=== PATIENT | female | born 1985 | race Caucasian/White ===

== ENCOUNTER 2016-09-10 08:38 | Outpatient (CLI) ==
[2015-12-16 07:39] VITALS: BMI 36.6
--- NOTE | 2016-09-10 10:11 | CT ---
EXAM: CT abdomen pelvis without contrast HISTORY: Left lower quadrant. COMPARISON: None TECHNIQUE: Serial axial images of the abdomen pelvis were performed from the lung bases through the inferior pelvis without contrast. These were viewed in multiple planes. FINDINGS: Lung bases are clear. Evaluation is limited due to lack of contrast. The liver is unremarkable. The gallbladder has been removed. Adrenal glands are unremarkable. The kidneys are normal. The spleen is unremarkable. T he pancreas is unremarkable. The stomach is normal. The small bowel in the abdomen and pelvis is unremarkable. The colon is unremarkable. The appendix is normal. The urinary bladder is distended. The uterus is mildly lobular in appearance. There i s no free air, free fluid or lymphadenopathy. The osseous structures are unremarkable. IMPRESSION: 1. No acute intra-abdominal or pelvic process to account for patient's symptoms. 2. The appendix is normal.
== END 2016-09-10 08:39 | disposition home or self-care (01) ==
LOC: RAD 08:38
PROVIDERS: ATTEND Nurse Practitioner Family
DX: R10.32 Left lower quadrant pain (principal); N93.9 Abnormal uterine and vaginal bleeding, unspecified

== ENCOUNTER 2016-12-26 10:38 | Emergency (ER) ==
[2016-12-26 10:38] VITALS: BMI 36.6
[2016-12-26 10:53] VITALS: BP 131/84; TEMP 98.2
--- NOTE | 2016-12-26 11:03 | ED.PDOC ---
General ED Provider: Dr. MILENA SEVERINO Chief Complaint: Finger Pain/Injury Stated Complaint: Patient was bitten by a dog on the left Index finger. was not provocated, when asked about the details of the dog, she dont wanted us to know about it. I did explained her the risk of Rabies. Time Seen by Physician: 11:00 Mode of Arrival: Walk-In Information Source: Patient Primary Care Provider: JOSELO GARDNER Nursing and Triage Documentation Reviewed and Agree: Yes Skin Complaint Exam - Skin/Soft Tissue Complaint/Exam Symptoms Are: Still present (left index finger.) Initial Severity: Mild Current Severity: Mild Character: Reports: Redness. Denies: Swelling, Raised, Painful Aggravating: Reports: Touch Alleviating: Reports: None Associated Signs and Symptoms: Denies: Fever, Chills, Itching, Drainage, Bruising, Tenderness, Red streaks, Joint swelling Related Surgical History: Reports: None Recent Exposure to Others w/Similar Symptoms: No Skin Findings: Present: Erythema (broken nail, some blood.) Differential Diagnoses: Other (dog bite) Review of Systems - Review Of Systems Constitutional: Reports: No symptoms Eyes: Reports: No symptoms Ears, Nose, Mouth, Throat: Reports: No symptoms Respiratory: Reports: No symptoms Cardiac: Reports: No symptoms GI: Reports: No symptoms : Reports: No symptoms Musculoskeletal: Reports: No symptoms Skin: Reports: No symptoms Neurological: Reports: No symptoms Endocrine: Reports: No symptoms Hematologic/Lymphatic: Reports: No symptoms All Other Systems: Reviewed and Negative Past Medical History - Past Medical History Previously Healthy: Yes Endocrine: Reports: None Cardiovascular: Reports: None Respiratory: Reports: None Hematological: Reports: None Gastrointestinal: Reports: None Genitourinary: Reports: None Neuro/Psych: Reports: None Musculoskeletal: Reports: None Cancer: Reports: None Last Menstrual Period: N/A - Surgical History General Surgical History: Reports: Tubal ligation (GALL BLADDER, X 2, TUBAL), (GALL BLADDER, X 2, TUBAL), Cholecystectomy (GALL BLADDER, X 2, TUBAL), Other (A1 cramping symptoms began in 2004 on CANDY after delivery became while 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)) - Family History Family History: Reports: Unknown - Social History Smoking Status: Never smoker Hx Substance Use: No Alcohol Screening: Occasionally - Immunizations Tetanus Shot up to Date: No Physical Exam - Physical Exam Appearance: Well-appearing, No pain distress, Well-nourished Eyes: JESÚS, EOMI, Conjunctiva clear ENT: Ears normal, Nose normal, Oropharynx normal Respiratory: Airway patent, Breath sounds clear, Breath sounds equal, Respirations nonlabored Cardiovascular: RRR, Pulses normal, No rub, No murmur GI/: Soft, Nontender, No masses, Bowel sounds normal, No Organomegaly Musculoskeletal: Normal strength, ROM intact, No edema, No calf tenderness Skin: Warm (left index fineger tip, has bite, with broken nail. ROM NORMAL), Dry , Normal color Neurological: Sensation intact, Motor intact, Reflexes intact, Cranial nerves intact, Alert, Oriented Psychiatric: Affect appropriate, Mood appropriate Critical Care Note - Critical Care Note Total Time (mins): 0 Course - Course Vital Signs: Temp Pulse Resp BP Pulse Ox 12/26/16 10:38 98.2 F 84 16 131/84 94 L Departure - Departure Time of Disposition: 11:06 Disposition: HOME SELF-CARE Discharge Problem: Dog bite Qualifiers: Encounter type: initial encounter Qualifier Code: ([id number]) Bitten by dog, initial encounter Instructions: Animal Bite (ED) Condition: Stable Pt referred to PMD for follow-up: Yes Additional Instructions: KEEP HAND ELEVATED Tylenol prn Prescriptions: Cephalexin [Keflex] 500 mg PO Q12HR #20 capsule Allergies/Adverse Reactions: Allergies No Known Allergies Allergy (Verified 12/26/16 10:45) Home Medications: Ambulatory Orders Cephalexin [Keflex] 500 mg PO Q12HR #20 capsule 12/26/16 Disposition Discussed With: Patient
[2016-12-26] MEDS ORDERED: BOOSTRIX IM ONE (11:15)
== END 2016-12-26 11:32 | disposition home or self-care (01) ==
LOC: ED 10:38
DX: S61.351A Open bite of left index finger with damage to nail, initial encounter (principal); W54.0XXA Bitten by dog, initial encounter
CPT/HCPCS: 90471; 99282

== ENCOUNTER 2017-02-02 11:30 | Emergency (ER) ==
[2017-02-02 11:38] VITALS: BMI 37.4
[2017-02-02] MEDS ORDERED: ZOFRAN 4 MG/2 ML IVP STA (11:55)
[2017-02-02] MEDS ORDERED: SODIUM CHLORIDE 1,000 ML IV STA ×2 (11:55→13:04)
--- NOTE | 2017-02-02 12:00 | ED.PDOC ---
General ED Provider: Dr. GIOVANNY VICTORIA JR Chief Complaint: Nausea/Vomiting Stated Complaint: vomiting and diarrhea at least every 2 hours since 2:45 a.m.is not aware of anything she might have eaten that was bad[End]10 hours 98.4 127 20 96% 132/94 2/10 diarrhea x 2 since arrival to ER registration[End] Time Seen by Physician: 11:59 Mode of Arrival: Walk-In Information Source: Patient Exam Limitations: No limitations Primary Care Provider: JOSELO GARDNER Nursing and Triage Documentation Reviewed and Agree: No Review of Systems - Review Of Systems Constitutional: Reports: Malaise Eyes: Reports: No symptoms Ears, Nose, Mouth, Throat: Reports: No symptoms Respiratory: Reports: No symptoms Cardiac: Reports: No symptoms GI: Reports: Abdominal pain, Nausea, Vomiting : Reports: No symptoms Musculoskeletal: Reports: No symptoms Skin: Reports: No symptoms Neurological: Reports: No symptoms Endocrine: Reports: No symptoms Hematologic/Lymphatic: Reports: No symptoms All Other Systems: Other Past Medical History - Past Medical History Previously Healthy: Yes Endocrine: Reports: None Cardiovascular: Reports: None Respiratory: Reports: None Hematological: Reports: None Gastrointestinal: Reports: None Genitourinary: Reports: None Neuro/Psych: Reports: None Musculoskeletal: Reports: None Cancer: Reports: None Last Menstrual Period: unkown - Surgical History General Surgical History: Reports: Hysterectomy, Tubal ligation, , Cholecystectomy, Other (A1 cramping symptoms began in 2004 on CANDY after delivery became while 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)) - Family History Family History: Reports: Unknown - Social History Smoking Status: Never smoker Hx Substance Use: No Alcohol Screening: Occasionally - Immunizations Tetanus Shot up to Date: Yes Physical Exam - Physical Exam Appearance: Ill-appearing, Obese Ill-appearing: Mild Pain Distress: Mild Eyes: JESÚS, EOMI, Conjunctiva clear ENT: Ears normal, Nose normal, Oropharynx normal Neck: Supple Respiratory: Airway patent, Breath sounds clear, Breath sounds equal, Respirations nonlabored Cardiovascular: RRR, Pulses normal, No rub, No murmur GI/: Soft, No masses, Bowel sounds normal, No Organomegaly, Tender (RLQ<<LLQ rebound on left ) Musculoskeletal: Normal strength, ROM intact, No edema, No calf tenderness Skin: Warm, Dry, Normal color Neurological: Sensation intact, Motor intact, Reflexes intact, Cranial nerves intact, Alert, Oriented Psychiatric: Affect appropriate, Mood appropriate Critical Care Note - Critical Care Note Total Time (mins): 20 Course - Course Hematology/Chemistry: 02/02/17 12:19 02/02/17 12:19 Orders, Labs, Meds: Lab Review 02/02/17 12:19 WBC 11.71 H RBC 4.96 Hgb 12.5 Hct 40.5 MCV 81.7 MCH 25.2 L MCHC 30.9 L RDW Coeff of Allen 14.8 Plt Count 329 Immature Gran % (Auto) 0.3 Neut % (Auto) 93.5 Lymph % (Auto) 2.3 L [place] % (Auto) 3.7 Eos % (Auto) 0.1 Baso % (Auto) 0.1 Immature Gran # (Auto) 0.0 Neut # 11.0 H Lymph # 0.3 L [place] # 0.4 Eos # 0.0 Baso # 0.0 Sodium 142 Potassium 4.3 Chloride 111 H Carbon Dioxide 21 Anion Gap 14.3 BUN 18 Creatinine 0.81 Estimated GFR (MDRD) 82.00 BUN/Creatinine Ratio 22.22 Glucose 131 H Calcium 8.6 Total Bilirubin 0.56 AST 17 ALT 21 Alkaline Phosphatase 118 H Total Protein 7.5 Albumin 3.7 Globulin 3.8 Albumin/Globulin Ratio 0.97 Amylase 51 Lipase 13 Procalcitonin < 0.05 H. pylori IgG Antibody Positive Orders Category Date Time Status ED IV/MEDIPORT/POWERPORT .ONCE EMERGENCY 02/02/17 11:55 Active AMYLASE Stat LAB 02/02/17 12:19 Completed CBC W/ AUTO DIFF Stat LAB 02/02/17 12:19 Completed COMPREHENSIVE METABOLIC PANEL Stat LAB 02/02/17 12:19 Completed H. PYLORI SCREEN Stat LAB 02/02/17 12:19 Completed LIPASE Stat LAB 02/02/17 12:19 Completed PROCALCITONIN Stat LAB 02/02/17 12:19 Completed 0.9 % Sodium Chloride [Saline Flush] MEDS 02/02/17 11:55 Discontinued 1 syr IVF PRN PRN Ondansetron HCl/Pf [Zofran 4 mg/2 ml] MEDS 02/02/17 11:55 Discontinued 4 mg IVP ONCE STA Sodium Chloride 0.9% [Sodium Chloride] 1,000 ml MEDS 02/02/17 13:04 Discontinued IV 200 mls/hr Sodium Chloride 0.9% [Sodium Chloride] 1,000 ml MEDS 02/02/17 11:[address] ABDOMEN/PELVIS WO CONTRAST Stat RADS 02/02/17 11:55 Completed Medications Discontinued Medications Generic Name Dose Route Start Last Admin Trade Name Freq PRN Reason Stop Dose Admin Sodium Chloride 1,000 mls @ 1,000 mls/hr 02/02/17 11:55 02/02/17 12:00 Sodium Chloride IV 02/02/17 12:54 1,000 mls/hr BOLUS STA Administration Sodium Chloride 1,000 mls @ 200 mls/hr 02/02/17 13:04 02/02/17 13:07 Sodium Chloride IV 02/02/17 18:03 200 mls/hr .Q5H STA Administration Ondansetron HCl 4 mg 02/02/17 11:55 02/02/17 12:06 Zofran 4 Mg/2 Ml IVP 02/02/17 11:56 4 mg ONCE STA Administration Sodium Chloride 1 syr 02/02/17 11:55 02/02/17 12:00 Saline Flush IVF 1 syr PRN PRN Administration To flush IV Vital Signs: Temp Pulse Resp BP Pulse Ox 02/02/17 13:13 99.7 F H 98 H 22 108/62 98 02/02/17 11:31 98.4 F 127 H 20 132/94 H 96 Departure - Departure Time of Disposition: 13:11 Disposition: HOME SELF-CARE Discharge Problem: Nausea, Vomiting, Helicobacter positive gastritis Instructions: Acute Nausea and Vomiting (ED), Helicobacter Pylori (ED) Condition: Good Pt referred to PMD for follow-up: No Prescriptions: Lansoprazole/Amoxiciln/Clarith [Prevpac Patient Pack] 1 each PO BID #1 combo..pkg Promethazine HCl [Phenergan Tab] 25 mg PO QID PRN #12 tablet PRN Reason: Nausea / Vomiting Allergies/Adverse Reactions: Allergies No Known Allergies Allergy (Verified 02/02/17 11:40) Home Medications: Ambulatory Orders Lansoprazole/Amoxiciln/Clarith [Prevpac Patient Pack] 1 each PO BID #1 combo..pkg 02/02/17 Promethazine HCl [Phenergan Tab] 25 mg PO QID PRN #12 tablet 02/02/17
[2017-02-02 12:26] LABS: BASOPHILS % (AUTO) 0.1 % (0.0-3.0); EOSINOPHILS % (AUTO) 0.1 % (0.0-7.0); HEMATOCRIT 40.5 % (37.0-47.0); HEMOGLOBIN 12.5 g/dl (12.0-16.0); IMMATURE GRANULOCYTE % (AUTO) 0.3 % (0.0-5.0); LYMPHOCYTES # (AUTO) 0.3 K/uL (0.60-3.4); LYMPHOCYTES % (AUTO) 2.3 (10.0-50.0); MEAN CORPUSCULAR HEMOGLOBIN 25.2 pg (27.0-31.0); MEAN CORPUSCULAR HGB CONC 30.9 (31.8-35.4); MEAN CORPUSCULAR VOLUME 81.7 fl (81.0-99.0); MONOCYTES # (AUTO) 0.4 K/uL (0.4-2.0); MONOCYTES % (AUTO) 3.7 (0-10); NEUTROPHILS % (AUTO) 93.5; PLATELET COUNT 329 10^3/uL (140-440); RED BLOOD COUNT 4.96 10^6/ul (4.20-5.40); WHITE BLOOD COUNT 11.71 K/ul (4.6-10.2)
[2017-02-02 12:34] LABS: H. PYLORI ANTIBODY POSITIVE (NEGATIVE); H.PYLORI INTERNAL QC INTERNAL QC VALID
[2017-02-02 12:45] LABS: ALBUMIN 3.7 g/dL (3.4-5.0); ALBUMIN/GLOBULIN RATIO 0.97; ANION GAP 14.3; BILIRUBIN,TOTAL 0.56 mg/dL (0.00-1.20); BUN/CREATININE RATIO 22.22; CALCIUM 8.6 mg/dL (8.2-10.2); CREATININE 0.81 mg/dL (0.60-1.30); POTASSIUM 4.3 mmol/L (3.5-5.10); TOTAL PROTEIN 7.5 g/dL (6.4-8.2)
--- NOTE | 2017-02-02 12:59 | CT ---
EXAM: CT ABDOMEN AND PELVIS HISTORY: Abdominal pain right lower quadrant, vomiting TECHNIQUE: CT abdomen and pelvis without intravenous contrast. Images were reconstructed using 5 m m section thickness. Reformations were prepared. COMPARISON: 09/10/2016 FINDINGS: Diagnostic limitations exist without including contrast enhanced images. Liver and spleen have no v isible focal lesions. Gallbladder is absent. Pancreas, adrenal glands, kidneys, ureters and abdomi nal aorta appear normal. Stomach appears normal. Normal appendix. Unremarkable bowel gas pattern. No uterus is identified. Cannot completely exclude a small 2.5 cm cyst in the right adnexa which may represent a cyst on th e ovary versus a loop of pacified small bowel. Correlate with surgical history. Urinary bladder is normal. There is no ascites or inflammatory infiltration of the abdominal fat. Ventral abdominal wall is intact without herniation. Bones appear appropriate for age. Lung bases are clear. There is no pneumoperitoneum. IMPRESSION: Cannot completely exclude a small 2.5 cm cyst in the right adnexa which may represent a cyst on the ovary versus a loop of pacified small bowel. Correlate with surgical history. Ultraso und is available if indicated. Normal appendix. Otherwise unremarkable.
[2017-02-02 13:14] VITALS: BP 108/62; TEMP 99.7
== END 2017-02-02 13:42 | disposition home or self-care (01) ==
LOC: ED 11:30
DX: A04.8 Other specified bacterial intestinal infections (principal)
CPT/HCPCS: 36415; 80053; 82150; 83690; 84145; 85025; 86677; 96361; 96374; 99283